=== PATIENT | male | born 1965 | race Caucasian/White ===

== ENCOUNTER 2021-09-08 00:32 | Day surgery (SDC) | payer BC, SELFPAY ==
[2021-08-30 12:53] VITALS: BMI 44.7
--- NOTE | 2021-09-07 15:25 | P.HP_ITS ---
History of Present Illness History of Present Illness Consent: Risks, benefits, and alternatives have been discussed and questions answered. Patient agrees to proceed with procedure. Chief complaint: neoplasm screening Narrative: Alpesh Pritchett is a 56 year old male Referred for colon cancer screening. Review of Systems Review of Systems: All systems reviewed & are unremarkable except as noted in HPI and below PMFSH Past Medical History Medical History Diabetes Morbid obesity with BMI of 40.0-44.9, adult MABEL (obstructive sleep apnea) Family History Family History Mother Patient's mother is in good health Father Patient's father is in good health Sibling Patient's sister is in good health Patient's brother is in good health Social History Social History Smoking status: Never smoker Alcohol intake: never Alcohol use details: less than one drink weekly Substance use type: does not use Living arrangements: with family Spiritual care concerns: No Meds Home Medications and Allergies Home Medications Medication Instructions Recorded Confirmed Type semaglutide [Rybelsus] 7 mg PO DAILY 08/30/21 08/30/21 History sod sulf-pot chloride-mag sulf See Rx Instructions .ROUTE 09/06/21 Rx [Sutab] .COMPLEX #1 dose pk Allergies Allergy/AdvReac Type Severity Reaction Status Date / Time No Known Allergies Allergy Mild Verified 09/08/21 10:28 Exam 2 Const: General: alert Orientation/consciousness: patient oriented x3 Resp: Auscultation: clear to auscultation bilaterally Cardio: Rhythm: regular rhythm GI: GI Palp: Yes Soft to palpation and No Tenderness to palpation present (GI) Neuro: General: patient oriented x3 Assessment and Plan Assessment and plan (1) Colon cancer screening: Code(s): Z12.11 - Encounter for screening for malignant neoplasm of colon Status: Acute Assessment and Plan: Colonoscopy with possible biopsy or polypectomy or cautery or injection of substances.
--- NOTE | 2021-09-08 09:00 | WPDANESEPPF ---
Anes - Initial Pre Proc Eval Procedure: Operation Date: 09/08/21 11:30 Proposed Procedures p Screening Colonoscopy - Regis Blas MD Date/Time: 09/08/21 09:00 Surgeon: Regis Blas MD Pre Op Diagnosis: neoplasm screening Patient Data Age: 56 Gender: M Height: 1.88 m Weight: 158 kg Allergies Allergy/AdvReac Type Severity Reaction Status Date / Time No Known Allergies Allergy Mild Verified 09/08/21 10:28 Home Medications Medication Instructions Recorded Confirmed Type semaglutide [Rybelsus] 7 mg PO DAILY 08/30/21 08/30/21 History sod sulf-pot chloride-mag sulf See Rx Instructions .ROUTE 09/06/21 Rx [Sutab] .COMPLEX #1 dose pk Patient hx anesthesia problems: none Family hx anesthesia problems: none Results Review: All pre-operative results and documents have been reviewed as part of the pre-operative evaluation. [facility] Past Medical History Medical History (Updated 09/08/21 @ 09:01 by Levon Agrawal MD) Diabetes Morbid obesity with BMI of 40.0-44.9, adult MABEL (obstructive sleep apnea) Family History Family History (Updated 10/04/09 @ 15:44 by DOCTOR UNKNOWN) Mother Patient's mother is in good health Father Patient's father is in good health Sibling Patient's sister is in good health Patient's brother is in good health Social History Social History Smoking status: Never smoker Alcohol intake: never Alcohol use details: less than one drink weekly Substance use type: does not use Living arrangements: with family Spiritual care concerns: No Anes - Eval Final PreProcedure Day of Procedure 09/08/21 09:00 Patient weight: morbidly obese Heart: regular rate and rhythm Lungs: clear to auscultation and normal air movement Airway: Mallampati scale class II Neurological: alert and oriented Last oral intake: >/= 8 hours ASA classification: III Emergent: no Anesthetic plan: proceed Anesthesia type and monitoring: general GIVS Results Review: All pre-operative results and documents have been reviewed as part of the pre-operative evaluation. Informed Consent: The patient's anesthetic plan and its attendant risks and benefits were discussed with the patient/family/POA. Questions were solicited and answers provided to the satisfaction of the patient/family/POA.
[2021-09-08 10:29] VITALS: BP 153/93; PULSE 64; RESP 18; TEMP 36.8; O2SAT 97; BMI 45.4
[2021-09-08] MEDS: LACTATED RINGERS 1,000 ML 150 ML IV CONT (10:42)
[2021-09-08 11:06] LABS: Glucose Point of Care 110 mg/dl (65-105)
[2021-09-08] MEDS: SIMETHICONE ORAL SUSPENSION 20 MG/0.3 ML 30 ML BOTTLE 0.6 ML IRRIGATION (11:23)
[2021-09-08 11:33] VITALS: BP 107/69; PULSE 60; RESP 18; O2SAT 98
[2021-09-08 11:43] VITALS: BP 127/76; PULSE 58; RESP 18; O2SAT 97
[2021-09-08 11:53] VITALS: BP 124/73; PULSE 56; RESP 20; O2SAT 97
== END 2021-09-08 11:57 | disposition home or self-care (01) ==
PROVIDERS: PCP Physician Assistant; Visit Provider Internal Medicine Gastroenterology
PROC: 0DJD8ZZ Inspection of Lower Intestinal Tract, Via Natural or Artificial Opening Endoscopic (ICD-10-PCS; CPT 45378; principal; 2021-09-08 11:30)
DX: Z12.11 Encounter for screening for malignant neoplasm of colon (principal); E11.9 Type 2 diabetes mellitus without complications; G47.33 Obstructive sleep apnea (adult) (pediatric); E66.01 Morbid (severe) obesity due to excess calories; Z68.42 Body mass index [BMI] 45.0-49.9, adult
CPT/HCPCS: 45378; 82948; J2704; J7120